=== PATIENT | male | born 1980 | race Caucasian/White ===

== ENCOUNTER 2018-05-31 11:04 | Observation (INO) | payer MEDICAID ==
[2018-05-31 12:20] LABS: ADD MAN DIFF? NO
[2018-05-31 12:24] LABS: WHITE BLOOD COUNT 4.4 10^3/ul (4.8-10.8)
[2018-05-31 12:24] LABS: BASOPHILS % 0.7 % (0.0-2.0); EOSINOPHILS # 0.2 10^3/ul (0.0-0.5); EOSINOPHILS % 4.8 % (0.0-7.0); HEMATOCRIT 44.6 % (42.0-52.0); LYMPHOCYTES # 1.4 10^3/ul (0.8-2.9); LYMPHOCYTES % 31.2 % (15.0-51.0); MEAN CORPUSCULAR HEMOGLOBIN 27.2 pg (29.0-33.0); MEAN CORPUSCULAR HGB CONC 33.6 g/dl (32.0-37.0); MEAN CORPUSCULAR VOLUME 80.8 fl (82.0-101.0); MONOCYTE # 0.5 10^3/ul (0.3-0.9); MONOCYTES % 10.8 % (0.0-11.0); NEUTROPHIL # 2.3 10^3/ul (1.6-7.5); NEUTROPHILS % 51.6 % (39.0-77.0); PLATELET COUNT 177 10^3/UL (140-415); RED BLOOD COUNT 5.52 10^6/ul (4.70-6.10); RED CELL DISTRIBUTION WIDTH 12.7 % (11.5-14.5)
[2018-05-31 12:35] LABS: ANION GAP 13 (8-16); BLOOD UREA NITROGEN 10 mg/dl (7-20); CALCIUM 9.1 mg/dl (8.4-10.2); CARBON DIOXIDE 25 mmol/L (21-31); CHLORIDE 107 mmol/L (97-110); CREATININE 0.74 mg/dl (0.61-1.24); GLUCOSE 100 mg/dl (70-220); POTASSIUM 4.2 mmol/L (3.5-5.1); SODIUM 141 mmol/L (135-144)
[2018-05-31] MEDS: MECLIZINE 12.5 MG TAB PO (12:36)
[2018-05-31] MEDS: ASPIRIN 81 MG TAB PO (12:36)
[2018-05-31] MEDS: NITROGLYCERIN 2% 1 GM OINT PKT TD (12:37)
[2018-05-31] MEDS: HEPARIN 1000 UNITS/ML 10 ML INJ IV (12:40)
[2018-05-31 12:47] LABS: TROPONIN-I < 0.010 ng/ml (0.000-0.120)
[2018-05-31 13:32] LABS: AMPHETAMINE/METHAMPHETAMINE Negative (NEGATIVE); BARBITURATES Negative (NEGATIVE); BENZODIAZEPINES Negative (NEGATIVE); CANNABINOIDS Negative (NEGATIVE); COCAINE Negative (NEGATIVE); OPIATES Negative (NEGATIVE)
[2018-05-31] MEDS: NITROGLYCERIN AEROSOL (4.9 GM) (14:11)
[2018-05-31] MEDS ORDERED: ACETAMINOPHEN 325 MG TAB PO (14:30)
[2018-05-31] MEDS ORDERED: DOCUSATE SODIUM 100 MG CAP PO (14:30)
[2018-05-31] MEDS ORDERED: MAGNESIUM HYDROXIDE 30ML CUP PO (14:30)
[2018-05-31] MEDS ORDERED: ONDANSETRON 4 MG INJ IV (14:30)
[2018-05-31] MEDS ORDERED: LORAZEPAM 0.5 MG TAB PO (14:30)
[2018-05-31] MEDS ORDERED: NACL 0.9% 3 ML SYG IV (14:30)
[2018-05-31] MEDS ORDERED: NITROGLYCERIN (SL) 0.4 MG TAB SL (14:30)
[2018-05-31 14:47] LABS: CHOL/HDL RATIO 6.4 RATIO; HDL CHOLESTEROL 29 mg/dl (28-63); LDL CHOLESTEROL,CALCULATED 127 mg/dl; TRIGLYCERIDES 159 mg/dl (0-149)
[2018-05-31 14:47] LABS: CHOLESTEROL 188 mg/dl (100-200)
[2018-05-31] MEDS: SOD CHLORIDE 0.9% 100 ML (14:47)
[2018-05-31] MEDS: IOHEXOL 100 ML (14:47)
[2018-05-31] MEDS: HYDROCODONE/APAP (5/325) TAB PO (14:57)
[2018-05-31] MEDS ORDERED: MECLIZINE 25 MG TAB PO (15:00)
[2018-05-31] MEDS ORDERED: HEPARIN 25000 UNITS/250 ML 250 ML IV (15:00)
[2018-05-31] MEDS ORDERED: HEPARIN 1000 UNITS/ML 10 ML INJ IV (15:00)
[2018-05-31 15:42] LABS: INR 0.98; PROTIME 13.1 Sec (11.9-14.9)
[2018-05-31 15:43] LABS: PARTIAL THROMBOPLASTIN TIME 27.6 Sec (25.0-35.0)
[2018-05-31 19:41] LABS: CREATINE KINASE 93 IU/L (23-200)
[2018-05-31 19:51] LABS: CK INDEX 0.5; CK-MB 0.47 ng/ml (0.0-2.4); TROPONIN-I < 0.010 ng/ml (0.000-0.120)
[2018-06-01 00:59] LABS: CREATINE KINASE 94 IU/L (23-200)
[2018-06-01 01:12] LABS: CK INDEX 0.5; CK-MB 0.47 ng/ml (0.0-2.4); TROPONIN-I < 0.010 ng/ml (0.000-0.120)
[2018-06-01] MEDS: PANTOPRAZOLE (EC) 40 MG TAB PO (05:18)
[2018-06-01 06:06] LABS: ADD MAN DIFF? NO
[2018-06-01 06:19] LABS: BASOPHILS % 0.6 % (0.0-2.0); EOSINOPHILS # 0.2 10^3/ul (0.0-0.5); EOSINOPHILS % 4.1 % (0.0-7.0); HEMATOCRIT 46.7 % (42.0-52.0); HEMOGLOBIN 15.4 g/dl (14.0-18.0); LYMPHOCYTES # 1.7 10^3/ul (0.8-2.9); LYMPHOCYTES % 33.6 % (15.0-51.0); MEAN CORPUSCULAR HEMOGLOBIN 26.4 pg (29.0-33.0); MEAN CORPUSCULAR VOLUME 80.1 fl (82.0-101.0); MEAN PLATELET VOLUME 11.1 fl (7.4-10.4); MONOCYTE # 0.6 10^3/ul (0.3-0.9); MONOCYTES % 11.2 % (0.0-11.0); NEUTROPHIL # 2.6 10^3/ul (1.6-7.5); NEUTROPHILS % 50.1 % (39.0-77.0); PLATELET COUNT 189 10^3/UL (140-415); RED BLOOD COUNT 5.83 10^6/ul (4.70-6.10); RED CELL DISTRIBUTION WIDTH 13.3 % (11.5-14.5)
[2018-06-01 06:19] LABS: WHITE BLOOD COUNT 5.1 10^3/ul (4.8-10.8)
[2018-06-01 07:19] LABS: BLOOD UREA NITROGEN 17 mg/dl (7-20); CALCIUM 9.2 mg/dl (8.4-10.2); CARBON DIOXIDE 27 mmol/L (21-31); CHLORIDE 106 mmol/L (97-110); CREATININE 0.86 mg/dl (0.61-1.24); GLUCOSE 87 mg/dl (70-220); MAGNESIUM 2.1 mg/dl (1.7-2.5); SODIUM 141 mmol/L (135-144)
[2018-06-01 07:21] LABS: ANION GAP 12 (8-16); POTASSIUM 4.1 mmol/L (3.5-5.1)
== END 2018-06-01 11:41 | disposition home or self-care (01) ==
LOC: E/R 11:04 → 6WM 13:38
DX: R07.89 Other chest pain (principal); R42 Dizziness and giddiness; D72.819 Decreased white blood cell count, unspecified; T16.2XXA Foreign body in left ear, initial encounter; X58.XXXA Exposure to other specified factors, initial encounter; R94.31 Abnormal electrocardiogram [ECG] [EKG]; R00.2 Palpitations; F43.9 Reaction to severe stress, unspecified; R45.0 Nervousness
CPT/HCPCS: 36415; 71045; 75571; 75574; 80048; 80061; 80307; 82550; 82553; 83735; 84443; 84484; 85025; 85610; 85730; 93005; 93306; 96374; 99291-25; G0378